=== PATIENT | female | born 1965 | race Caucasian/White ===

== ENCOUNTER 2018-08-08 07:11 | Inpatient (IN) | payer BC ==
--- NOTE | 2018-08-01 14:44 | HP ---
HISTORY AND PHYSICAL: DATE OF ADMISSION/SURGERY: 08/13/18 DATE OF OFFICE VISIT: 07/31/18 SURGEON: Lizet Mistry MD.* (DICTATED BY LUCI AGUIRRE) PROCEDURE: Right total hip arthroplasty. CHIEF COMPLAINT: Right hip pain. HISTORY OF PRESENT ILLNESS: Ms. Wiggins is a 52-year-old female with complaints of right hip pain. She has failed conservative treatment and elected to proceed with a right total hip arthroplasty. PAST MEDICAL HISTORY: 1. Vitamin D deficiency. 2. History of breast cancer. 3. Sleep apnea. 4. Hypothyroidism. 5. History of MRSA. PAST SURGICAL HISTORY: 1. Lumpectomy. 2. Bilateral carpal tunnel release. 3. Tubal ligation. 4. Cholecystectomy. 5. x2. 6. Tonsillectomy. CURRENT MEDICATIONS: 1. Synthroid 175 mcg daily. 2. Vitamin B12. 3. Multivitamin. 4. Vitamin C. 5. Magnesium. ALLERGIES: No known drug allergies. FAMILY HISTORY: Coronary artery disease. SOCIAL HISTORY: She is a 52-year-old female. Lives with her . She does not smoke or use drugs. She uses occasional alcohol. REVIEW OF SYSTEMS: A complete 14-point review of systems was reviewed with the patient. It was positive for hypothyroidism and a history of MRSA approximately 6 years ago. She denies history of DVT, PE, hepatitis, HIV, or anesthesia problems. PHYSICAL EXAMINATION GENERAL: She is well developed, well nourished, in no acute distress. VITAL SIGNS: She stands 5 feet 5 inches tall, weighs 254 pounds. Her blood pressure is 136/86 and heart rate is 92. HEENT: Normocephalic, atraumatic. NECK: Supple. No palpable lymph nodes. PULMONARY: The lungs are clear to auscultation bilaterally. CARDIO: Regular rate and rhythm. Strong S1, S2. ABDOMEN: Soft, nontender, nondistended. NEUROLOGICAL: She is alert and oriented x3. MUSCULOSKELETAL: Right lower extremity, the skin is intact. There are no open wounds or abrasions. She walks with an antalgic type gait favoring her right hip. She has decreased internal and external rotation of the right hip. She has a 2+ dorsalis pedis pulse, intact sensation. Her lower extremity muscle group strengths are intact at 5/5. ASSESSMENT AND PLAN: Ms. Wiggins is a 52-year-old female with end-stage osteoarthritis of the right hip. She has failed conservative treatment and elected to proceed with a right total hip arthroplasty. The surgery is scheduled for 08/13/[address] Mistry discussed the risks and the benefits of the surgery at today's visit and all of her questions were answered. She will follow up with Dr. Mistry in 2 weeks after the surgery. LUCI AGUIRRE [id number]/[facility] #: [id number] [facility]ENTERFranklyn
[~2018-08-08 07:11] MED LIST: Acetaminophen TAB* 325 MG PO ONE; Buffered Lidocaine 1% SYRIN* 1 ML/SYRINGE INTRADERM ONE; Famotidine IV* 10 MG/ML 2 ML (20 mg) IV ONE; Gabapentin CAP(*) 300 MG PO ONE; Lactated Ringers 1000 ML Bag* 1,000 ML IV SCH; celeCOXIB CAP* 200 MG PO ONE
--- OUTSIDE RECORDS SUMMARY | 2018-08-08 07:16 | XMS REPORT | Continuity of Care Document ---
:1965 External Reference #:[id number] Author Name Paty Molina Care Team Providers Name Role Phone Angeles Eason MD Primary Care Physician Unavailable Payers Type Date Identification Numbers Payment Provider Subscriber Policy Number: [id number] [facility] Ppo Linda Wiggins Group Number: [id number] [address] PayID: [id number] [place] [address] [address] Expires: 2009 Policy Number: [id number] Of Y Linda Wiggins PayID: [id number] [address] [place] [address] Advance Directives Description No Information Available Problems Date Description Provider Status Onset: 03/30/2016 Morbid obesity Abbey Pascal MD Active Onset: 05/01/2016 Obstructive sleep apnea syndrome Abbey Pascal MD Active Onset: 11/27/2017 Osteoarthritis of hip Angeles Eason M.D. Active Onset: 03/08/2018 Body mass index 40+ - severely obese Lizet Mistry M.D. Active Family History Date Family Member(s) Problem(s) Comments General Heart Disease Father age 77 Parkinson's and CHF Father due to CHF () Mother Arthritis Siblings 2 Brother and sister, healthy First Brother Alive And Well First Sister Alive And Well Social History Type Date Description Comments Sex Unknown Marital Status Lives With Family Occupation Currently Working Works for [employer], works in [employer] on [employer] ETOH Use Rarely consumes alcohol Tobacco Use Start: Unknown Patient is a former 1PPD x 8 years, quit End: Unknown smoker in 1988 Recreational Drug Use Denies Drug Use Smoking Status Reviewed: 07/30/18 Patient is a former 1PPD x 8 years, quit smoker in 1988 Exercise Type/Frequency Does not exercise Allergies, Adverse Reactions, Alerts Description No Known Drug Allergies Medications Medication Date Status Form Strength Qnty SIG Indications Ordering Provider Meloxicam 06/26/ Active Tablets 15mg 14tabs take 1 Lizet 2018 tab by meri Mistry M.D. with food once a day Synthroid 06/01/ Active Tablets 175mcg 90tabs one Octavio 2018 tablet NICKOLAS Barnard daily Vitamin B-12 / Active Tablets 1000mcg 1 by Unknown 0000 mouth every day Multivitamins / Active Capsules daily Unknown 0000 Vitamin D / Active Tablets 2000Unit 1 by Unknown 0000 mouth every day C 1000 / Active Tablets 1000mg Unknown 0000 Magnesium / Active daily Unknown 0000 Levofloxacin 03/08/ Hx Tablets 500mg 7tabs one by J01.90 Octavio 2018 - mouth NICKOLAS Barnard 03/08/ daily 2018 for 7 days Augmentin 03/01/ Hx Tablets 875-125mg 20tabs by mouth Junior 2018 - twice a D. Jessie, 03/11/ day Roge,FACP 2018 Fluticasone 02/26/ Hx Suspension 50mcg/Act 16unit 2 sprays J06.9 Otcavio Propionate 2018 - s each NICKOLAS Barnard 07/14/ nostril 2019 qd. Guaifenesin-Cod 02/26/ Hx Syrup 100-10mg/5 240ml 5-10ml J06.9 Octavio eine 2018 - ML every NICKOLAS Barnard 03/01/ 4-6 2018 hours for cough Tramadol HCL 01/21/ Hx Tablets 50mg 45tabs 1 tab Lizet 2017 - twice a Fede, 04/11/ day as M.D. 2018 needed for pain Sulfamethoxazol 12/24/ Hx Tablets 800-160mg 14tabs one by M79.671 Nicolasa e/Trimethoprim 2018 - mouth Varn, N.P. DS 12/31/ twice a 2018 day for 7 days Cephalexin 12/20/ Hx Tablets 500mg 21tabs take one R21 Octavio 2018 - tablet NICKOLAS Barnard 12/24/ every 8 2018 hours for 7 days Meloxicam 12/05/ Hx Tablets 15mg 14tabs take 1 Lizet 2017 - tab by Fede 04/11/ mouth M.D. 2018 with food once a day Diazepam 11/12/ Hx Tablets 5mg 2tabs 1-2 tabs Angeles 2017 - by mouth Cotton, hour M.D. 2018 prior to procedur e. Do not drive after taking Guaifenesin ac 06/27/ Hx Syrup 100-10mg/5 473ml 5-10ml Mateo01Rosalee Cunningham 2017 - ML every 6 NICKOLAS Barnard 07/02/ hours as 2018 needed-c ough Amoxicillin/Cla 06/26/ Hx Tablets 875-125mg 20tabs take one J01.90 Octavio vulanate 2017 - tablet NICKOLAS Barnard Potassium 07/07/ q12 2018 hours for 10 days Benzonatate 06/26/ Hx Capsules 200mg 30caps one by Destiny Cunningham 2017 - mouth NICKOLAS Barnard 06/27/ three 2016 times daily as needed for cough Synthroid 05/03/ Hx Tablets 150mcg 90tabs 1 By Octavio 2017 - Mouth NICKOLAS Barnard 06/01/ 2017 Day Sulfamethoxazol 02/06/ Hx Tablets 800-160mg 14tabs 1 tablet Angeles e/Trimethoprim 2016 - twice Cotton, DS 02/22/ daily M.D. 2016 for 7 days Cephalexin 02/05/ Hx Tablets 500mg 21tabs 1 by Nakul03.211 Angeles 2017 - mouth Cotton, 02/22/ three M.D. 2017 times a day x 7 days Vitamin D 03/29/ Hx Capsules [id number] 1 cap by Unknown (Ergocalciferol 2016 - mouth ) 12/17/ per week 2016 Fish Oil / Hx Capsules 1000mg 1 by Unknown Burp-Less 0000 mouth every day Glucosamine / Hx Capsules 500Comp 1 by Unknown Chondroitin 500 0000 - mouth Complex 10/30/ every 2017 day Metformin HCL / Hx Tablets 500mg 1 by Unknown 0000 - mouth 12/17/ daily 2016 Fish Oil / Hx Capsules 1000mg 1 by Unknown Concentrate 0000 - mouth 07/14/ once a 2019 day Medications Administered in Office Medication Date Status Form Strength Qnty SIG Indications Ordering Provider Depomedrol Administered Injection Lizet 40MG 018 Roge Mistry Immunizations Description No Information Available Vital Signs Date Vital Result Comment 07/30/2018 11:09am Height 65 inches 5'5" Weight 252.00 lb Heart Rate 82 /min BP Systolic Sitting 131 mmHg BP Diastolic Sitting 83 mmHg Body Temperature 96.9 F Pain Level 10 R hip O2 % BldC Oximetry 98 % BMI (Body Mass Index) 41.9 kg/m2 07/15/2018 8:20am Height 65 inches 5'5" Weight 257.00 lb Heart Rate 64 /min BP Systolic 132 mmHg BP Diastolic 86 mmHg Body Temperature 97.8 F Pain Level 4 BMI (Body Mass Index) 42.8 kg/m2 04/12/2018 3:28pm Height 65 inches 5'5" Weight 247.00 lb BP Systolic 123 mmHg BP Diastolic 78 mmHg Respiratory Rate 17 /min Pain Level 2 BMI (Body Mass Index) 41.1 kg/m2 03/29/2018 4:06pm Heart Rate 96 /min BP Systolic 118 mmHg BP Diastolic 86 mmHg Respiratory Rate 16 /min Pain Level 4 03/08/2018 10:12am Height 65 inches 5'5" Weight 267.50 lb Heart Rate 104 /min BP Systolic Sitting 132 mmHg BP Diastolic Sitting 82 mmHg Body Temperature 99.0 F O2 % BldC Oximetry 96 % BMI (Body Mass Index) 44.5 kg/m2 03/08/2018 8:54am Height 65 inches 5'5" Weight 262.00 lb BP Systolic 132 mmHg BP Diastolic 81 mmHg Respiratory Rate 16 /min Pain Level 6 BMI (Body Mass Index) 43.6 kg/m2 02/26/2018 11:15am Height 65 inches 5'5" Weight 267.00 lb Heart Rate 105 /min BP Systolic 135 mmHg BP Diastolic 83 mmHg Body Temperature 98.4 F O2 % BldC Oximetry 95 % BMI (Body Mass Index) 44.4 kg/m2 12/28/2017 2:28pm Height 65 inches 5'5" Weight 278.00 lb Heart Rate 68 /min BP Systolic Sitting 130 mmHg BP Diastolic Sitting 82 mmHg Body Temperature 97.0 F O2 % BldC Oximetry 97 % BMI (Body Mass Index) 46.3 kg/m2 12/24/2017 11:43am Height 65 inches 5'5" Weight 276.25 lb Heart Rate 68 /min BP Systolic Sitting 100 mmHg BP Diastolic Sitting 80 mmHg Respiratory Rate 16 /min Body Temperature 96.3 F BMI (Body Mass Index) 46.0 kg/m2 12/20/2017 11:42am Height 65 inches 5'5" Weight 268.00 lb Heart Rate 97 /min BP Systolic 120 mmHg BP Diastolic 74 mmHg Body Temperature 98.1 F O2 % BldC Oximetry 98 % BMI (Body Mass Index) 44.6 kg/m2 12/19/2017 8:53am Height 65 inches 5'5" Weight 275.00 lb BP Systolic Sitting 118 mmHg BP Diastolic Sitting 68 mmHg Respiratory Rate 16 /min Body Temperature 99.8 F Pain Level 5 BMI (Body Mass Index) 45.8 kg/m2 12/11/2017 2:16pm Heart Rate 76 /min Respiratory Rate 16 /min Body Temperature 97.6 F 12/05/2017 8:02am Height 65 inches 5'5" Weight 275.00 lb Heart Rate 80 /min BP Systolic 128 mmHg BP Diastolic 80 mmHg BMI (Body Mass Index) 45.8 kg/m2 11/27/2017 8:59am Height 64 inches 5'4" Weight 273.00 lb Heart Rate 75 /min BP Systolic Sitting 140 mmHg BP Diastolic Sitting 90 mmHg Body Temperature 97.4 F Pain Level 7 Right side O2 % BldC Oximetry 97 % BMI (Body Mass Index) 46.9 kg/m2 10/30/2017 9:45am Weight 269.50 lb Heart Rate 78 /min BP Systolic 128 mmHg BP Diastolic 81 mmHg Body Temperature 96.7 F O2 % BldC Oximetry 95 % 06/26/2017 9:37am Height 64 inches 5'4" Weight 253.00 lb Heart Rate 88 /min BP Systolic Sitting 134 mmHg BP Diastolic Sitting 88 mmHg Body Temperature 97.9 F O2 % BldC Oximetry 98 % BMI (Body Mass Index) 43.4 kg/m2 02/22/2017 9:46am Height 64 inches 5'4" Weight 244.00 lb Heart Rate 67 /min BP Systolic Sitting 120 mmHg BP Diastolic Sitting 80 mmHg O2 % BldC Oximetry 97 % BMI (Body Mass Index) 41.9 kg/m2 02/05/2017 10:09am Weight 244.25 lb Heart Rate 89 /min BP Systolic 124 mmHg BP Diastolic 70 mmHg Body Temperature 97.4 F 12/18/2016 11:11am Height 64 inches 5'4" Weight 248.00 lb Heart Rate 70 /min BP Systolic Sitting 116 mmHg BP Diastolic Sitting 78 mmHg Respiratory Rate 16 /min O2 % BldC Oximetry 98 % room air BMI (Body Mass Index) 42.6 kg/m2 07/26/2016 3:35pm Height 64 inches 5'4" Weight 276.00 lb Heart Rate 76 /min BP Systolic 130 mmHg BP Diastolic 82 mmHg Respiratory Rate 18 /min Body Temperature 97.4 F BMI (Body Mass Index) 47.4 kg/m2 06/21/2016 10:42am Height 64 inches 5'4" Weight 290.00 lb Heart Rate 84 /min BP Systolic 124 mmHg BP Diastolic 72 mmHg Respiratory Rate 18 /min Body Temperature 97.2 F BMI (Body Mass Index) 49.8 kg/m2 06/13/2016 10:56am Height 64 inches 5'4" Weight 288.00 lb Heart Rate 72 /min BP Systolic 124 mmHg BP Diastolic 82 mmHg Respiratory Rate 14 /min O2 % BldC Oximetry 97 % BMI (Body Mass Index) 49.4 kg/m2 05/24/2016 3:59pm Height 64 inches 5'4" Weight 288.00 lb Heart Rate 84 /min BP Systolic 112 mmHg BP Diastolic 78 mmHg Respiratory Rate 16 /min Body Temperature 97.7 F BMI (Body Mass Index) 49.4 kg/m2 05/01/2016 3:55pm Height 64 inches 5'4" Weight 288.00 lb Heart Rate 72 /min BP Systolic 124 mmHg BP Diastolic 82 mmHg Respiratory Rate 14 /min O2 % BldC Oximetry 98 % BMI (Body Mass Index) 49.4 kg/m2 04/21/2016 11:12am Height 64 inches 5'4" Weight 288.00 lb Heart Rate 72 /min BP Systolic 118 mmHg BP Diastolic 88 mmHg Respiratory Rate 16 /min Body Temperature 96.9 F BMI (Body Mass Index) 49.4 kg/m2 04/03/2016 3:02pm Height 64 inches 5'4" Weight 287.00 lb Heart Rate 80 /min BP Systolic 146 mmHg BP Diastolic 92 mmHg BMI (Body Mass Index) 49.3 kg/m2 03/30/2016 7:49am Height 64 inches 5'4" Weight 289.50 lb Heart Rate 76 /min BP Systolic Sitting 132 mmHg BP Diastolic Sitting 76 mmHg Respiratory Rate 16 /min O2 % BldC Oximetry 98 % BMI (Body Mass Index) 49.7 kg/m2 Neck Circumference in inches 17.5 Results Test Date Facility Test Result H/L Range Note Laboratory test 07/29/2018 [facility] TSH 0.54 mcIU/mL N 0.34- 5.60 finding 101 ([place] [address] Stim Horm) [phone] Free T4 (Free Thyroxine) 1.55 ng/dL High 0.61-1.12 Comp Metabolic Panel 05/28/2018 [facility] Sodium 143 mmol/L N 135-[address] [place] [address] [phone] Potassium 4.2 mmol/L N 3.5-5.0 Chloride 106 mmol/L N 101-111 Co2 Carbon Dioxide 29 mmol/L N 22-32 Anion Gap 8 mmol/L N 2-11 Glucose 86 mg/dL N 70-100 Blood Urea Nitrogen 19 mg/dL N 6-24 Creatinine 0.86 mg/dL N 0.51-0.95 BUN/Creatinine Ratio 22.1 High 8-20 Calcium 9.1 mg/dL N 8.6-10.3 Total Protein 7.0 g/dL N 6.4-8.9 Albumin 4.0 g/dL N 3.2-5.2 Globulin 3.0 g/dL N 2-4 Albumin/Globulin Ratio 1.3 N 1-3 Total Bilirubin 0.40 mg/dL N 0.2-1.0 Alkaline Phosphatase 59 U/L N 34-104 Alt 24 U/L N 7-52 Ast 18 U/L N 13-39 Egfr Non- 69.0 >60 Egfr 83.5 >60 1 Laboratory 05/28/2018 [facility] TSH (Thyroid 7.90 High 0.34- 5.[address] [facility]orm) mcIU/[place] [address] [phone] Lipid Profile 05/28/2018 [facility] Triglycerides 126 mg/dL 3 (Trig/Chol/HDL [address] ) [place], [place] [id number] [phone] Cholesterol 195 mg/dL 4 HDL Cholesterol 56.8 mg/dL 5 LDL Cholesterol 113 mg/dL 6 Laboratory 05/07/2017 [facility] Hepatitis C Nonreactive N Nonreactive [address] Antibody [place], [place] [id number] [phone] Lipid Profile 05/07/2017 [facility] Triglycerides 58 mg/dL N 8 (Trig/Chol/HD [address]) [place] [address] [phone] Cholesterol 145 mg/dL N 9 HDL Cholesterol 54.3 mg/dL N 10 LDL Cholesterol 79 mg/dL N 11 Comp Metabolic Panel 05/07/2017 [facility] Sodium 136 mmol/L N 133-[address] [place] [address] [phone] Potassium 4.5 mmol/L N 3.5-5.0 Chloride 101 mmol/L N 101-111 Co2 Carbon Dioxide 30 mmol/L N 22-32 Anion Gap 5 mmol/L N 2-11 Glucose 83 mg/dL N 70-100 Blood Urea Nitrogen 14 mg/dL N 6-24 Creatinine 0.71 mg/dL N 0.51-0.95 BUN/Creatinine Ratio 19.7 N 8-20 Calcium 9.6 mg/dL N 8.6-10.3 Total Protein 7.7 g/dL N 6.4-8.9 Albumin 4.1 g/dL N 3.2-5.2 Globulin 3.6 g/dL N 2-4 Albumin/Globulin Ratio 1.1 N 1-3 Total Bilirubin 0.60 mg/dL N 0.2-1.0 Alkaline Phosphatase 47 U/L N 34-104 Alt 18 U/L N 7-52 Ast 16 U/L N 13-39 Egfr Non- 86.4 N >60 Egfr 111.2 N >60 12 Laboratory test 05/07/2017 [facility] TSH (Thyroid 2.60 mcIU/mL N 0.34-5.[address] Stim [place]orm) [place] [address] [phone] 1 Because ethnic data is not always readily available, this report includes an eGFR for both -Americans and non- Americans. The National Kidney Disease Education Program (NKDEP) does not endorse the use of the MDRD equation for patients that are not between the ages of 18 and 70, are , have extremes of body size, muscle mass, or nutritional status, or are non- or non-. According to the National Kidney Foundation, irrespective of diagnosis, the stage of the disease is based on the level of kidney function: Stage Description GFR(mL/min/1.73 m(2)) 1 Kidney damage with normal or decreased GFR 90 2 Kidney damage with mild decrease in GFR 60-89 3 Moderate decrease in GFR 30-59 4 Severe decrease in GFR 15-29 5 Kidney failure <15 (or dialysis) 2 FASTING 10 HOUR May 04 Desirable: <150 Borderline High: 150-199 High: 200-499 Very High: >500 4 Desirable: <200 Borderline High: 200-239 High: >239 5 Low: <40 Desirable: 40-60 High: >60 6 Desirable: <100 Near Optimal: 100-129 Borderline High: 130-159 High: 160-189 Very High: >189 7 FASTING 10 HOUR 8 Desirable: <150 Borderline High: 150-199 High: 200-499 Very High: >500 9 Desirable: <200 Borderline High: 200-239 High: >239 10 Low: <40 Desirable: 40-60 High: >60 11 Desirable: <100 Near Optimal: 100-129 Borderline High: 130-159 High: 160-189 Very High: >189 12 Because ethnic data is not always readily available, this report includes an eGFR for both -Americans and non- Americans. The National Kidney Disease Education Program (NKDEP) does not endorse the use of the MDRD equation for patients that are not between the ages of 18 and 70, are , have extremes of body size, muscle mass, or nutritional status, or are non- or non-. According to the National Kidney Foundation, irrespective of diagnosis, the stage of the disease is based on the level of kidney function: Stage Description GFR(mL/min/1.73 m(2)) 1 Kidney damage with normal or decreased GFR 90 2 Kidney damage with mild decrease in GFR 60-89 3 Moderate decrease in GFR 30-59 4 Severe decrease in GFR 15-29 5 Kidney failure <15 (or dialysis) 13 FASTING 10 HOUR Procedures Date Code Description Status 03/29/2018 30764 Inj/Aspir Major JT Or Bursa W/ US Completed 10/05/2017 [id number] Mammogram Completed 04/09/2016 46393 Sleep Study Unattended,HRT Rate,Oxygen Sat,Resp Completed Effort/Airflow 12/28/2014 [id number] Colonoscopy Completed Encounters Type Date Location Provider Dx Diagnosis Office Visit 07/15/2018 Orthopedic Lizet Mistry, M25.551 Pain in right hip 8:00a [facility] [facility] M16.11 Unilateral primary osteoarthritis, right hip E66.01 Morbid (severe) obesity due to excess calories Z68.41 Body mass index (BMI) 40.0-44.9, adult Office Visit 04/12/2018 3:00p [facility] Lizet Mistry M25.551 Pain in right Of [facility] M.D. hip M16.11 Unilateral primary osteoarthritis, right hip E66.01 Morbid (severe) obesity due to excess calories Z68.41 Body mass index (BMI) 40.0-44.9, adult Office Visit 03/08/2018 8:45a [facility] Lizet Mistry M25.551 Pain in right Of [facility]. M.D. hip G47.33 Obstructive sleep apnea (adult) (pediatric) M16.11 Unilateral primary osteoarthritis, right hip Z68.41 Body mass index (BMI) 40.0-44.9, adult Office Visit 03/08/2018 10:20a [facility] Internal Octavio Barnard Z00.00 [facility] for Medicine - SERVICE PLANNER general adult [place] medical exam w/o abnormal findings E03.9 Hypothyroidism, unspecified Z13.220 Encounter for screening for lipoid disorders Z13.1 Encounter for screening for diabetes mellitus J01.90 Acute sinusitis, unspecified Office Visit 02/26/2018 10:40a [facility] Internal Octavio Barnard NP J06.9 Acute upper Medicine - respiratory [place] infection, unspecified Office Visit 12/28/2017 2:20p [facility] Internal Nicolasa Rankin, L03.115 Cellulitis of Medicine - N.P. right lower limb [place] B35.3 Tinea pedis Office Visit 12/24/2017 11:40a [facility] Internal Nicolasa Rankin M79.671 Pain in right Medicine - N.P. foot [place] Office Visit 12/20/2017 11:40a [facility] Internal Octavio Barnard NP R21 Rash and other Medicine - nonspecific skin [place] eruption Office Visit 12/19/2017 8:45a Orthopedic Lizet Mistry, M25.551 Pain in right hip Services Roge CastellanoMZara M16.11 Unilateral primary osteoarthritis, right hip Office Visit 12/11/2017 Surgical Jenn Rodriguez R92.0 Mammographic 2:00p [facility] microcalcification [facility] found on dx imaging [facility] Office Visit 12/05/2017 Orthopedic Lizet M16.11 Unilateral primary 8:00a [facility] Roge Mistry osteoarthritis, right C.M.A. hip E66.01 Morbid (severe) obesity due to excess calories Z68.42 Body mass index (BMI) 45.0-49.9, adult M25.551 Pain in right hip Office Visit 11/27/2017 9:00a [facility] Internal Angeles M54.32 Sciatica, left Citlali Eason M.D. side [place] Z85.3 Personal history of malignant neoplasm of breast R03.0 Elevated blood-pressure reading, w/o diagnosis of htn Office Visit 10/30/2017 9:40a [facility] Internal Angeles M54.32 Sciatica, left Citlali Eason M.D. side [place] Office Visit 06/26/2017 9:40a [facility] Internal Octavio Barnard NP J01.90 Acute sinusitis, Medicine - unspecified [place] Office Visit 02/22/2017 9:40a [facility] Internal Octavio Barnard NP Z00.00 [facility] for [facility] - general adult [place] medical exam w/o abnormal findings G47.33 Obstructive sleep apnea (adult) (pediatric) E03.9 Hypothyroidism, unspecified Z13.220 Encounter for screening for lipoid disorders Z13.1 Encounter for screening for diabetes mellitus Z11.59 Encounter for screening for other viral diseases Office Visit 02/05/2017 [facility] Internal Angeles L03.211 Cellulitis of 10:00a Citlali Eason M.D. face [place] Office Visit 12/18/2016 Pulmonology And Shabana G47.33 Obstructive sleep 11:00a [facility] Rogers, RN, apnea (adult) [facility] PACU NURSE-BC (pediatric) E66.01 Morbid (severe) obesity due to excess calories Z68.42 Body mass index (BMI) 45.0-49.9, adult Office Visit 07/26/2016 3:30p Surgical Ramiro Elizabeth E66.01 Morbid ( severe) [facility] HAIRSTON, ROSAS obesity due to excess calories Z71.3 Dietary counseling and surveillance Office Visit 06/21/2016 11:00a Surgical Jael Huerta E66.01 Morbid [facility] NICKOLAS Naidu (severe) obesity due to excess calories Z68.42 Body mass index (BMI) 45.0-49.9, adult Z71.3 Dietary counseling and surveillance G47.33 Obstructive sleep apnea (adult) (pediatric) M16.11 Unilateral primary osteoarthritis, right hip Office Visit 06/13/2016 10:45a [facility] And Abbey G47.33 Obstructive sleep [facility] apnea (adult) [facility] (pediatric) E66.01 Morbid (severe) obesity due to excess calories Z68.42 Body mass index (BMI) 45.0-49.9, adult Office Visit 05/24/2016 4:00p Surgical Ramiro Elizabeth E66.01 Morbid ( severe) [facility] ROSAS HAIRSTON obesity due to excess calories Z71.3 Dietary counseling and surveillance Office Visit 05/01/2016 3:45p Pulmonology And Abbey G47.33 Obstructive sleep [facility] apnea (adult) [facility] (pediatric) E66.01 Morbid (severe) obesity due to excess calories Office Visit 04/21/2016 Surgical Jael Huerta Z71.3 Dietary counseling 11:00a [facility] NICKOLAS Naidu and surveillance [facility] E66.01 Morbid (severe) obesity due to excess calories Z68.42 Body mass index (BMI) 45.0-49.9, adult Office Visit 04/03/2016 Orthopedic Ignacio Torres, M16.11 Unilateral primary 3:00p [facility] Roge jack, C.M.A. right hip Office Visit 03/30/2016 Pul[facility] And Abbey R06.83 Snoring 7:45a [facility] R40.0 Somnolence E66.01 Morbid (severe) obesity due to excess calories Plan of Treatment Future Appointment(s):08/13/2018 3:30 pm - Fran Hernandez PA-C at [facility]08/13/2018 3:30 pm - LUCI Gill at [facility]08/13/2018 3:30 pm - Lizet Mistry M.D. at [facility]07/31/2018 9:00 am - Lizet Mistry M.D. at [facility] [place]/14/2019 9:40 am - Octavio Barnard NP at [facility] Internal Medicine [facility]07/30/2018 - Octavio Barnard, NICKOLASZ01.818 Encounter for other preprocedural examinationNew Orders:EKG, Ordered: 07/30/18M25.551 Pain in right hipNew Xrays: Hip Right 2 Views And Pelvis 44002 - 13949, Ordered: 07/30/18E03.9 Hypothyroidism, semyluhhqvqP26.33 Obstructive sleep apnea (adult) (pediatric) Comments:I recommend resuming use of your CPAP leading up to surgery and after. Bring your CPAP with you to the hospital with you the day of surgery.
--- OUTSIDE RECORDS SUMMARY | 2018-08-08 07:16 | XMS REPORT | Continuity of Care Document ---
:1965 External Reference #:[id number] Author Name Jeanna Vernon Care Team Providers Name Role Phone Angeles Eason MD Primary Care Physician Unavailable Payers Type Date Identification Numbers Payment Provider Subscriber Policy Number: [id number] [facility] Linda Wiggins Group Number: [id number] [address] PayID: [id number] [place] [address] [address] Expires: 2009 Policy Number: [id number] Of Y Linda Wiggins PayID: [id number] [address] [place] [address] Advance Directives Description No Information Available Problems [...] With Family Occupation Currently Working Works for [email or web address], works in [employer] on [employer], [employer] ETOH Use Rarely consumes alcohol Tobacco Use Start: Unknown Patient is a former 1PPD x 8 years, quit End: Unknown smoker in 1988 Recreational Drug Use Denies Drug Use Smoking Status Reviewed: 07/31/18 Patient is a former 1PPD x 8 years, quit smoker in 1988 Exercise Type/Frequency Does not exercise Allergies, Adverse Reactions, Alerts Description No Known Drug Allergies Medications Medication Date Status Form Strength Qnty SIG Indications Ordering Provider Synthroid 06/01/ Active Tablets 175mcg 90tabs one Octavio 2018 tablet NICKOLAS Barnard daily Vitamin B-12 / Active Tablets 1000mcg 1 by Unknown 0000 mouth every day Multivitamins / Active Capsules daily Unknown 0000 Vitamin D / Active Tablets 2000Unit 1 by Unknown 0000 mouth every day C 1000 / Active Tablets 1000mg Unknown 0000 Magnesium / Active daily Unknown 0000 Meloxicam 06/26/ Hx Tablets 15mg 14tabs take 1 Lizet 2018 - tab by Fede, 07/30/ mouth M.D. 2018 with food once a day Levofloxacin 03/08/ Hx Tablets 500mg 7tabs one by J01.90 Octavio 2018 - mouth NICKOLAS Barnard 03/08/ daily 2018 for 7 days Augmentin 03/01/ Hx Tablets 875-125mg 20tabs by mouth Junior 2018 - twice a D. Jessie, 03/11/ day MBrandin,FACP 2018 Fluticasone 02/26/ Hx Suspension 50mcg/Act 16unit 2 sprays J06.9 Octavio Propionate 2018 - s each NICKOLAS Barnard [...] Hx Tablets 15mg 14tabs take 1 Lizet 2018 - tab by Fede, 04/11/ mouth M.D. 2017 with food once a day Diazepam 11/12/ Hx Tablets 5mg 2tabs 1-2 tabs Angeles 2018 - by mouth Cotton, 11/27/ 1 hour M.D. 2018 prior to procedur e. Do not drive after taking Guaifenesin ac 06/27/ Hx Syrup 100-10mg/5 473ml 5-10ml J01.90 Octavio 2017 - ML every 6 NICKOLAS Barnard 07/02/ hours as 2018 needed-c ough Amoxicillin/Cla 06/26/ Hx Tablets 875-125mg 20tabs take one J01.90 Octavio vulanate 2016 - tablet NICKOLAS Barnard Potassium 07/07/ q12 2018 hours for 10 days Benzonatate 06/26/ Hx Capsules 200mg 30caps one by [email or web address] Octavio 2017 - mouth NICKOLAS Barnard 06/27/ three 2016 times daily as needed for cough Synthroid 05/03/ Hx Tablets 150mcg 90tabs 1 By Octavio 2017 - Mouth NICKOLAS Barnard 06/01/ Every 2017 Day Sulfamethoxazol 02/06/ Hx Tablets 800-160mg 14tabs 1 tablet Angeles andrade/Trimethoprim 2016 - twice Cotton, DS 02/22/ daily M.D. 2016 for 7 days Cephalexin 02/05/ Hx Tablets 500mg 21tabs 1 by [email or web address] Angeles 2016 - mouth Cotton, 02/22/ three M.D. 2017 times a day x 7 days Vitamin D 03/29/ Hx Capsules [id number] 1 cap by Unknown (Ergocalciferol 2016 - [...] Available Vital Signs Date Vital Result Comment 07/31/2018 9:16am Height 65 inches 5'5" Weight 254.00 lb Heart Rate 92 /min BP Systolic 136 mmHg BP Diastolic 86 mmHg BMI (Body Mass Index) 42.3 kg/m2 07/30/2018 11:09am Height 65 inches 5'5" Weight [...] Date Facility Test Result H/L Range Note CBC Auto Diff 07/30/2018 [facility] White Blood 5.6 10^3/uL N 3.5-10.[address] [place] [address] [phone] Red Blood Count 4.91 10^6/uL N 4.00-5.40 Hemoglobin 14.2 g/dL N 12.0-16.0 Hematocrit 42 % N 35-47 Mean Corpuscular Volume 86 fL N 80-97 Mean Corpuscular Hemoglobin 29 pg N 27-31 Mean Corpuscular HGB Conc 33 g/dL N 31-36 Red Cell Distribution Width 14 % N 10.5-15 Platelet Count 288 10^3/uL N 150-450 Mean Platelet Volume 8.1 fL N 7.4-10.4 Abs Neutrophils 2.9 10^3/uL N 1.5-7.7 Abs Lymphocytes 2.0 10^3/uL N 1.0-4.8 Abs Monocytes 0.5 10^3/uL N 0-0.8 Abs Eosinophils 0.1 10^3/uL N 0-0.6 Abs Basophils 0 10^3/uL N 0-0.2 Abs Nucleated RBC 0 10^3/uL Granulocyte % 51.8 % Lymphocyte % 36.5 % Monocyte % 8.9 % Eosinophil % 2.1 % Basophil % 0.7 % Nucleated Red Blood Cells % 0.1 Basic Metabolic Panel 07/30/2018 [facility] Sodium 138 mmol/L N 135-[address] [place] [address] [phone] Potassium 4.4 mmol/L N 3.5-5.0 Chloride 101 mmol/L N 101-111 Co2 Carbon Dioxide 28 mmol/L N 22-32 Anion Gap 9 mmol/L N 2-11 Glucose 91 mg/dL N 70-100 Blood Urea Nitrogen 15 mg/dL N 6-24 Creatinine 0.70 mg/dL N 0.51-0.95 BUN/Creatinine Ratio 21.4 High 8-20 Calcium 9.5 mg/dL N 8.6-10.3 Egfr Non- 87.5 >60 Egfr 105.9 >60 1 Laboratory test 07/30/2018 [facility] Partial 30.8 seconds N 26.0-36.[address] [place] [address] PTT [phone] Inr/Protime 07/30/2018 [facility] Inr 0.95 N 0.77-1.[address] [place] [address] [phone] Type & Screen 07/30/2018 [facility] Patient [place] [address] [phone] Antibody Screen NEGATIVE Laboratory test 07/29/2018 [facility] TSH (Thyroid 0.54 mcIU/mL N 0.34-5.[address] Stim Horm) [place] [address] [phone] Free T4 (Free Thyroxine) 1.55 ng/dL High 0.61-1.12 Comp Metabolic Panel 05/28/2018 [facility] Sodium 143 mmol/L N 135-145 [place] [address] [phone] Potassium 4.2 mmol/L N 3.5-5.0 Chloride 106 [...] Egfr Non- 69.0 >60 Egfr 83.5 >60 2 Laboratory 05/28/2018 [facility] TSH (Thyroid 7.90 High 0.34- 5.[address] Stim Horm) mcIU/[place] [address] [phone] Lipid Profile 05/28/2018 [facility] Triglycerides 126 mg/dL 4 (Trig/Chol/HDL [address] ) [place] [address] [phone] Cholesterol 195 mg/dL 5 HDL Cholesterol 56.8 mg/dL 6 LDL Cholesterol 113 mg/dL 7 Laboratory 05/07/2017 [facility] Hepatitis C Nonreactive N Nonreactive 8 test finding [address] [place] [address] [phone] Lipid Profile 05/07/2017 [facility] Triglycerides 58 mg/dL N 9 (Trig/Chol/HD [address] L) [place] [address] [phone] Cholesterol 145 mg/dL N 10 HDL Cholesterol 54.3 mg/dL N 11 LDL Cholesterol 79 mg/dL N 12 Comp Metabolic Panel 05/07/2017 [facility] Sodium 136 mmol/L N 133-[address] [place] [address] [phone] Potassium 4.5 mmol/L N 3.5-5.0 Chloride 101 [...] 86.4 N >60 Egfr 111.2 N >60 13 Laboratory test 05/07/2017 [facility] TSH (Thyroid 2.60 mcIU/mL N 0.34-5.60 [address] Stim Horm) [place] [address] [phone] 1 Because ethnic data is not always [...] 5 Kidney failure <15 (or dialysis) 2 Because ethnic data is not always readily [...] 15-29 5 Kidney failure <15 (or dialysis) 3 FASTING 10 HOUR May 05 Desirable: <150 Borderline High: 150-199 High: 200-499 Very High: >500 5 Desirable: <200 Borderline High: 200-239 High: >239 6 Low: <40 Desirable: 40-60 High: >60 7 Desirable: <100 Near Optimal: 100-129 Borderline High: 130-159 High: 160-189 Very High: >189 8 FASTING 10 HOUR 9 Desirable: <150 Borderline High: 150-199 High: 200-499 Very High: >500 10 Desirable: <200 Borderline High: 200-239 High: >239 11 Low: <40 Desirable: 40-60 High: >60 12 Desirable: <100 Near Optimal: 100-129 Borderline High: 130-159 High: 160-189 Very High: >189 13 Because ethnic data is not always readily [...] 15-29 5 Kidney failure <15 (or dialysis) 14 FASTING 10 HOUR Procedures Date Code Description Status 07/30/2018 01181 EKG Tracing & Interpretation Completed 03/29/201831715 Inj/Aspir Major JT Or Bursa W/ US Completed 10/05/2017 [id number] Mammogram Completed 04/09/2016 60347 Sleep Study Unattended,HRT Rate,Oxygen Sat,Resp Completed Effort/Airflow 12/28/2014 13359804 Colonoscopy Completed Encounters Type Date Location Provider Dx Diagnosis Office Visit 07/15/2018 Orthopedic Lizet Mistry, M25.551 Pain in right hip 8:00a [facility] MEduinD. M16.11 Unilateral primary osteoarthritis, right hip E66.01 [...] (BMI) 40.0-44.9, adult Office Visit 03/08/2018 10:20a 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 Internal Octavio Barnard NP J06.9 Acute upper Medicine - respiratory [place] infection, unspecified Office Visit 12/28/2017 2:20p [facility] Internal Nicolasa Rankin, L03.115 Cellulitis of Medicine - N.P. right lower limb [place] B35.3 Tinea pedis Office Visit 12/24/2017 11:40a [facility] Internal Nicolasa Rankin M79.671 Pain in right Medicine - N.P. foot [place] Office Visit 12/20/2017 11:40a 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 hip E66.01 Morbid (severe) obesity due to excess calories Z68.42 Body mass index (BMI) 45.0-49.9, adult M25.551 Pain in right hip Office Visit 11/27/2017 9:00a [facility] Internal Angeles M54.32 Sciatica, left Citlali Eason M.D. side [place] Z85.3 Personal history of malignant neoplasm of breast R03.0 Elevated blood-pressure reading, w/o diagnosis of htn Office Visit 10/30/2017 9:40a [facility] Internal Angeles M54.32 Sciatica, left Citlali Eason M.D. side [place] Office Visit 06/26/2017 9:40a [facility] Internal Octavio Barnard NP J01.90 Acute sinusitis, Medicine - unspecified [place] Office Visit 02/22/2017 9:40a [facility] Internal Octavio Barnard NP Z00.00 Encntr for Medicine - general adult [place] medical exam w/o abnormal findings G47.33 Obstructive sleep apnea (adult) (pediatric) E03.9 Hypothyroidism, unspecified Z13.220 Encounter for screening for lipoid disorders Z13.1 Encounter for screening for diabetes mellitus Z11.59 Encounter for screening for other viral diseases Office Visit 02/05/2017 [facility] Internal Angeles L03.211 Cellulitis of 10:00a Citlali Eason M.D. face [place] Office Visit 12/18/2016 Pulmonology And Shabana G47.33 Obstructive sleep 11:00a [facility] KARIME Rogers, RN, apnea (adult) 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 ROSAS HAIRSTON obesity due to excess calories Z71.3 Dietary counseling and surveillance Office Visit 06/21/2016 11:00a Surgical Jael Huerta E66.[address] [facility] NICKOLAS Naidu (severe) obesity due to excess calories Z68.42 Body mass index (BMI) 45.0-49.9, adult Z71.3 Dietary counseling and surveillance G47.33 Obstructive sleep apnea (adult) (pediatric) M16.11 Unilateral primary osteoarthritis, right hip Office Visit 06/13/2016 10:45a Pulmonology And [place] G47.33 Obstructive sleep [facility] apnea (adult) [facility] (pediatric) E66.01 Morbid (severe) obesity due to excess calories Z68.42 Body mass index (BMI) 45.0-49.9, adult Office Visit 05/24/2016 4:00p Surgical Ramiro Elizabeth, E66.01 Morbid ( severe) [facility] ROSAS HAIRSTON obesity due to excess calories Z71.3 Dietary counseling and surveillance Office Visit 05/01/2016 3:45p Pulmonology [facility] [place] G47.33 Obstructive sleep [facility] apnea (adult) [facility] (pediatric) E66.01 Morbid (severe) obesity due to excess calories Office Visit 04/21/2016 Surgical Jael Huerta Z71.3 Dietary counseling 11:00a [facility] NICKOLAS Naidu and surveillance [facility] E66.01 Morbid (severe) obesity due to excess calories Z68.42 Body mass index (BMI) 45.0-49.9, adult Office Visit 04/03/2016 Orthopedic Ignacio Torres, M16.11 Unilateral primary 3:00p [facility] osteoarthritis, C.[facility]. right hip Office Visit 03/30/2016 Pulmon[facility] [place] R06.83 Snoring 7:45a [facility] R40.0 Somnolence E66.01 Morbid (severe) obesity due to excess calories Plan of Treatment Future Appointment(s):08/21/2018 10:30 am - Lizet Mistry M.D. at [facility]08/08/2018 3:30 pm - MAGNO Castillo at [facility]08/08/2018 3:30 pm - LUCI Gill at [facility]08/08/2018 3:30 pm - Lizet Mistry M.D. at [facility]03/14/2019 9:40 am - Octavio Barnard NP at [facility] Internal Medicine - Ekzspgsir67/30/2019 - Lizet Mistry M.D.M25.551 Pain in right hipFollow up: Follow up: 2 weeks after surgery
[2018-08-08] MEDS ORDERED: ceFAZolin 2 GM PREMIX in ORs 2 GM/50 ML BAG IVPB ONE (07:58)
[2018-08-08] MEDS ORDERED: celeCOXIB CAP* 100 MG ONE (07:58)
[2018-08-08] MEDS ORDERED: Famotidine IV* 10 MG/ML 2 ML (20 mg) ONE (07:58)
[2018-08-08] MEDS ORDERED: Gabapentin CAP(*) 300 MG ONE (07:58)
[2018-08-08] MEDS ORDERED: Acetaminophen TAB* 325 MG ONE (07:58)
[2018-08-08] MEDS ORDERED: Lidocaine 2% PF * 5 ML VIAL ONE (08:27)
[2018-08-08] MEDS ORDERED: Ketorolac INJ* 30 MG/ML 1 ML VIAL ONE (08:27)
[2018-08-08] MEDS ORDERED: fentaNYL* 50 MCG/ML 2 ML VIAL (100 MCG VIAL) ONE ×2 (08:27→14:31)
[2018-08-08] MEDS ORDERED: Propofol* 10 MG/ML 20 ML BTL ONE ×2 (08:27→11:09)
[2018-08-08] MEDS ORDERED: Ondansetron INJ* 2 MG/ML VIAL ONE (08:27)
[2018-08-08] MEDS ORDERED: Dexamethasone IV* 4 MG/ML 1 ML (4 MG) ONE (08:27)
[2018-08-08] MEDS ORDERED: Midazolam* 1 MG/ML 5 ML VIAL (5 MG) ONE (08:28)
[2018-08-08] MEDS ORDERED: Cisatracurium* 2 MG/ML MDV 5 ML ONE (10:42)
[2018-08-08] MEDS ORDERED: fentaNYL* 50 MCG/ML 5 ML VIAL (250 MCG VIAL) ONE (11:09)
[2018-08-08] MEDS ORDERED: ROPIVACAINE 5 MG/ML 30 ML BTL (0.5%) ONE (13:00)
[2018-08-08] MEDS ORDERED: HYDROmorphone INJ1* 1 MG/ML SYRINGE ONE ×2 (13:25→13:58)
[2018-08-08] MEDS ORDERED: Morphine VIAL* 4 MG/ML VIAL (1 ml vial) IV PRN (13:45)
[2018-08-08] MEDS ORDERED: Cyclobenzaprine TAB* 10 MG PO PRN (13:45)
[2018-08-08] MEDS ORDERED: Ondansetron INJ* 2 MG/ML VIAL IV PRN ×2 (13:45→13:56)
[2018-08-08] MEDS ORDERED: Polyethylene Glycol 3350* 17 GM PACKET PO PRN (13:45)
[2018-08-08] MEDS ORDERED: Ondansetron TAB* 4 MG PO PRN (13:45)
[2018-08-08] MEDS ORDERED: Magnesium Hydroxide LIQ* 30 ML UDC PO PRN (13:45)
[2018-08-08] MEDS ORDERED: oxyCODONE/Acetamin 5/325 MG* TAB PO PRN (13:45)
[2018-08-08] MEDS ORDERED: diPHENhydraMINE IV* 50 MG/ML 1 ml VIAL (BENADRYL) IV PRN (13:45)
[2018-08-08] MEDS ORDERED: Bisacodyl SUPP* 10 MG SUPP PR PRN (13:45)
[2018-08-08] MEDS ORDERED: traMADol TAB* 50 MG PO PRN (13:45)
[2018-08-08] MEDS ORDERED: Naloxone* 0.4 MG/ML 1 ML VIAL IV PRN (13:56)
[2018-08-08] MEDS: HYDROmorphone INJ1* 1 MG/ML SYRINGE IV PRN ×2 (14:03→14:21)
--- NOTE | 2018-08-08 14:41 | PN ---
Progress Note - Progress Note Date of Service: 08/08/18 Note: patient resting comfortably in recovery room. Pain well controlled. able to dorsi flex/plantar flex, 2+ DP pulse and intact sensation
[2018-08-08] MEDS: fentaNYL* 50 MCG/ML 2 ML VIAL (100 MCG VIAL) IV PRN ×2 (14:56→15:41)
[2018-08-08] MEDS ORDERED: oxyCODONE TAB* 5 MG TAB ONE ×2 (15:33→15:37)
[2018-08-08] MEDS: oxyCODONE TAB* 5 MG TAB PO PRN ×2 (15:36→19:24)
[2018-08-08] MEDS ORDERED: ceFAZolin 1 GM ADVAN(*) 1 GM in NS 0.9% 50 ML* 50 ML IVPB SCH (16:30)
[2018-08-08] MEDS: Lactated Ringers 1000 ML Bag* 1,000 ML IV SCH (16:58)
[2018-08-08] MEDS ORDERED: Warfarin TAB(*) 6 MG PO ONE (18:00)
[2018-08-08] MEDS ORDERED: Morphine INJ* 2 MG/ML 1 ML SYRINGE (TWO MG - NEW SYRINGE VERSION) IV PRN (18:00)
[2018-08-08] MEDS: Acetaminophen TAB* 325 MG PO SCH (18:07)
[2018-08-08] MEDS: ceFAZolin 1 GM ADVAN(*) 1 GM in NS 0.9% 50 ML* 50 ML IVPB SCH (19:16)
[2018-08-08] MEDS: Magnesium Hydroxide LIQ* 30 ML UDC PO SCH (19:26)
[2018-08-08] MEDS: Docusate CAP* 100 MG PO SCH (19:26)
--- NOTE | 2018-08-08 21:37 | OP ---
DATE OF OPERATION: 08/08/18 - ROOM #339 DATE OF : 63 ATTENDING SURGEON: Lizet Mistry MD. SECURITY SUPPORT ANALYST: LUCI Hackett. Phelps did help throughout the procedure with preparation of the leg, wound retraction, manipulation of the hip, and wound closure. ANESTHESIOLOGIST: Dr. Cruz. ANESTHESIA: General. PRE-OP DIAGNOSIS: Severe end-stage degenerative osteoarthritis of the right hip joint. POST-OP DIAGNOSIS: Severe end-stage degenerative osteoarthritis of the right hip joint. OPERATIVE PROCEDURE: Right total hip arthroplasty. COMPLICATIONS: None. ESTIMATED BLOOD LOSS: 250 cc. SPECIMENS: Femoral head and acetabular reaming sent to Pathology. HARDWARE USED: This is [place] uncemented total hip arthroplasty hardware with a cup of Trident 52E acetabulum with one 60-mm screw. For the liner, a trident X3 10- degree polyethylene insert 36E. For the stem, an Accolade 2 size 3 with a 132- degree neck. For the head, a Biolox delta ceramic V40 femoral head, 36 + 2.5. BRIEF HISTORY/INDICATIONS: Ms. Wiggins is a 52-year-old female with years of increasingly severe right hip pain. Radiographs showed [id number] arthritis. She failed conservative treatment with anti-inflammatories, pain medication, intraarticular injection and physical therapy. Due to continued pain and decreased quality of life, the patient elected to undergo right total hip arthroplasty. Informed consent was obtained from the patient. She understood the risks of surgery included but were not limited to bleeding, infection, damage to nearby structures, continued pain, need for further surgery, intraoperative fracture, nerve palsy, hardware failure or loosening, dislocation , leg length discrepancy, stroke, heart attack, blood clot, and . She wished to proceed. Specific to this, patient with her very young age and morbid obesity, which could lead to early loosening. We discussed this and the patient wished to proceed. INTRAOPERATIVE FINDINGS: Intraoperatively, the patient was noted to have severe end-stage arthritis. She had extensive osteophyte formation and complete loss of cartilage in the acetabulum and femoral head. DESCRIPTION OF PROCEDURE: Ms. Wiggins was identified in the preanesthesia unit. Her right lower extremity was marked as the correct operative side. Informed consent was signed and placed in the chart. The patient was taken to the operating room and placed under general anesthesia. A Patel catheter was placed. The patient was placed in the left lateral decubitus position on the pegboard. All bony prominences were well padded. Right lower extremity was prepped and draped in the usual sterile fashion. Preop time-out was made to correctly identify the patient's side and site. Appropriate perioperative antibiotics were given within 1 hour of incision. A standard posterior hip incision was made with a 10-blade and carried down to the lateral fascial layer. Lateral fascial layer was incised in line with the skin incision. A Charnley retractor was placed. The piriformis and conjoint tendons were elevated off the posterolateral femur and tagged with #5 Ethibond. Next, electrocautery was used to make a standard posterolateral capsular flap. This was also tagged with #5 Ethibond. The hip was carefully dislocated. Lesser troch to center of the femoral head measured 55 mm. Oscillating saw was used to make the appropriate femoral neck cut. The femoral head was removed. The femur was retracted anteriorly. After appropriate placement of retractor, the acetabulum was well visualized. A long-handled knife was used to sharply remove any remaining labrum from the acetabular rim. The acetabulum was sequentially reamed up to a size 51. A 51 reamer obtained a bleeding subchondral bone bed. A 51 trial had good stability. For the final implant a 52E Trident cup was chosen. This was impacted into the acetabulum without difficulty. The cup was stable with appropriate anteversion and abduction angle. A single screw was placed in the superior posterior quadrant for extra stability. Polyethylene chosen was a Trident X3 10-degree liner 36E. This was impacted into the acetabulum without difficulty. The liner was impacted and was stable. Stability of the liner was checked and rechecked and noted to be stable. Next, attention was turned to preparation of the femoral canal. A canal finder was used to enter the proximal femur. The femur was sequentially broached up to a size 3. Size 3 broach had good fit and appropriate anteversion. A 132 neck trial was chosen with a 36 +0 head trial. Lesser troch to center of the femoral head measured 53 mm. Therefore, a 36 +2.5 head was chosen. Lesser troch to center of femoral head measured 56 mm. The hip was reduced and taken through a range of motion. The hip was stable in all positions. There was good soft tissue tension and appropriate leg lengths. The hip was carefully dislocated. All trials were removed. Final implant chosen for the femur was an Accolade two femoral stem size 3 with a 132- degree neck angle. This was impacted into the femoral canal without difficulty. The stem was stable. There was appropriate anteversion. A Biolox delta ceramic V40, femoral head 36 +2.5 was chosen as the femoral head. This was impacted onto the femoral neck. Lesser troch to center of the femoral head measured 56 mm. The hip was reduced and taken through range of motion. The hip was stable in all positions. There was good soft tissue tension and appropriate leg length. The hip was copiously irrigated with sterile saline. Previously tagged tendons and capsule were reapproximated to the posterolateral femur through two trochanteric drill holes. The lateral fascial layer was closed using interrupted #1 Vicryls. The rest of the incision was closed in a layered fashion using 0 and 2-0 Vicryls. The skin was closed using running 3-0 Monocryl and Dermabond. Sterile Adaptic, 4x4s, and paper tape were used to cover the incision. The patient's anesthesia was reversed without difficulty. She was taken to the PACU in stable condition. Intended weightbearing will be weightbearing as tolerated. Intended DVT prophylaxis will be Eliquis t.i.d. [id number]/[facility] #: [id number] VIJAYA
[2018-08-08] MEDS: oxyCODONE/Acetamin 5/325 MG* TAB PO PRN (21:44)
[2018-08-09] MEDS: oxyCODONE TAB* 5 MG TAB PO PRN ×2 (00:39→05:41)
[2018-08-09] MEDS: Acetaminophen TAB* 325 MG PO SCH ×3 (02:19→15:38)
[2018-08-09] MEDS: oxyCODONE/Acetamin 5/325 MG* TAB PO PRN ×4 (03:07→17:17)
[2018-08-09] MEDS: ceFAZolin 1 GM ADVAN(*) 1 GM in NS 0.9% 50 ML* 50 ML IVPB SCH ×2 (03:08→11:24)
[2018-08-09] MEDS: Lactated Ringers 1000 ML Bag* 1,000 ML IV SCH (03:09)
[2018-08-09 05:35] LABS: Hematocrit 32 % (35-47); Hemoglobin 10.6 g/dl (12.0-16.0); Mean Platelet Volume 7.7 fL (7.4-10.4); Platelet Count 272 10^3/ul (150-450)
[2018-08-09 05:40] LABS: INR 1.02 (0.77-1.02)
[2018-08-09 05:51] LABS: BUN/Creatinine Ratio 18.6 (8-20); Calcium 8.4 mg/dL (8.6-10.3); EGFR Non-African American 106.6 (>60); Potassium 4.4 mmol/L (3.5-5.0)
[2018-08-09] MEDS ORDERED: Levothyroxine TAB* 175 MCG TAB PO SCH (06:00)
--- NOTE | 2018-08-09 08:21 | PN ---
Progress Note - Progress Note Date of Service: 08/09/18 SOAP: Subjective: 52 y/o female s/p R PRESTON by Dr Mistry 08/08/2018. Patient feeling well, pain well controlled, no complaints. Slightly "groggy: from medications. VSS, afebrile overnight. Objective: General- Well appearing, NAD, AO resting in chair comfortably. MSK- RLE- DF/PF = b/l, PT 1+ however weak b/l. negative homans sign., dressing intact, no drainage, erythema noted. Vital Signs Temp 97.7 F 08/09/18 03:09 Pulse 72 08/09/18 03:09 Resp 16 08/09/18 08:58 BP 109/59 08/09/18 03:09 Pulse Ox 96 08/09/18 03:09 Intake & Output 08/08/18 08/09/18 08/09/18 18:59 06:59 18:59 Intake Total 1999 2024 400 Output Total 1999 Balance 1999 25 400 Weight 116.845 kg Intake: IV Fluids 1999 1045 ABX - CEFAZOLIN 55 LR 1999 990 Oral 980 400 Output: Patel 1999 Assessment: Stable 52 y/o femle s/p R PRESTON by Dr Mistry 08/08/2018. Plan: - DVT prophylaxis- lovenox, eliquis at home - Continue PT/ OT - stairs tonight - Follow up with Dr. Mistry within 10-14 days - H&H - Stable - post-op IV ABX - Running - Pain medication- tramadol for mild pain, oxycodone/ percocet for moderate to severe pain - Pilar D/C tonight if does OK with PT> Acetaminophen (Tylenol Tab*) 975 mg PO Q8H [facility] Last Admin: 08/09/18 02:19 Dose: Not Given Apixaban (Eliquis*) 2.5 mg PO BID [facility] Bisacodyl (Dulcolax Supp*) 10 mg SC DAILY PRN PRN Reason: constipation Cyclobenzaprine HCl (Flexeril Tab*) 10 mg PO TID PRN PRN Reason: SPASMS Diphenhydramine HCl (Benadryl Iv*) 12.5 mg IV Q6H PRN PRN Reason: PRURITIS Docusate Sodium (Colace Cap*) 100 mg PO BID [facility] Last Admin: 08/09/18 08:58 Dose: 100 mg Enoxaparin Sodium (Lovenox(*)) 40 mg SUBCUT Q24H [facility] Lactated Ringer's (Lactated Ringers 1000 Ml Bag*) 1,000 mls @ 100 mls/hr IV PER RATE [facility] Last Admin: 08/09/18 03:09 Dose: 100 mls/hr Cefazolin Sodium 1 gm/ Sodium (Chloride) 50 mls @ 200 mls/hr IVPB 0300,1100, 1900 [facility] Stop: 08/09/18 11:14 Last Admin: 08/09/18 03:08 Dose: 200 mls/hr Lactulose (Lactulose*) 30 ml PO Q6H PRN PRN Reason: constipation Levothyroxine Sodium (Synthroid Tab*) 175 mcg PO QAM@0600 [facility] Last Admin: 08/09/18 05:41 Dose: 175 mcg Magnesium Hydroxide (Milk Of Magnesia Liq*) 30 ml PO BID [facility] Last Admin: 08/09/18 08:58 Dose: 30 ml Magnesium Hydroxide (Milk Of Magnesia Liq*) 30 ml PO Q6H PRN PRN Reason: constipation Morphine Sulfate (Morphine Inj ((Syringe))*) 2 mg IV Q2H PRN PRN Reason: PAIN Ondansetron HCl (Zofran Inj*) 4 mg IV Q6H PRN PRN Reason: nausea Ondansetron HCl (Zofran Tab*) 4 mg PO Q6H PRN PRN Reason: NAUSEA Oxycodone HCl (Roxycodone Tab*) 10 mg PO Q4H PRN PRN Reason: SEVERE PAIN Last Admin: 08/09/18 05:41 Dose: 10 mg Oxycodone/Acetaminophen (Percocet 5/325 Tab*) 1 tab PO Q4H PRN PRN Reason: PAIN Oxycodone/Acetaminophen (Percocet 5/325 Tab*) 2 tab PO Q4H PRN PRN Reason: PAIN Last Admin: 08/09/18 08:58 Dose: 2 tab Polyethylene Glycol/Electrolytes (Miralax*) 17 gm PO DAILY PRN PRN Reason: Constipation Tramadol HCl (Ultram*) 50 mg PO Q6H PRN PRN Reason: PAIN Laboratory Results - last 24 hr 08/09/18 08/09/18 08/09/18 05:26 05:26 05:26 Hgb 10.6 L Hct 32 L Plt Count 272 MPV 7.7 INR (Anticoag Therapy) 1.02 Sodium 134 L Potassium 4.4 Chloride 102 Carbon Dioxide 27 Anion Gap 5 BUN 11 Creatinine 0.59 Est GFR ( Amer) 129.0 Est GFR (Non-Af Amer) 106.6 BUN/Creatinine Ratio 18.6 Glucose 116 H Calcium 8.4 L
[2018-08-09] MEDS: Docusate CAP* 100 MG PO SCH (08:58)
[2018-08-09] MEDS: Magnesium Hydroxide LIQ* 30 ML UDC PO SCH (08:58)
[2018-08-09 11:33] VITALS: BP 109/57
[2018-08-09] MEDS ORDERED: Enoxaparin(*) 40 MG/0.4 ML SYR SUBCUT SCH (12:00)
[2018-08-09] MEDS ORDERED: Apixaban* 2.5 MG TAB PO SCH (21:00)
== END 2018-08-09 18:42 | disposition home or self-care (01) | DRG 301 ==
LOC: AA 07:11 → SSU 16:19
PROVIDERS: ADMIT Orthopaedic Surgery Adult Reconstructive Orthopaedic Surgery; ATTEND Orthopaedic Surgery Adult Reconstructive Orthopaedic Surgery
PROC: 0SR904A Replacement of Right Hip Joint with Ceramic on Polyethylene Synthetic Substitute, Uncemented, Open Approach (ICD-10-PCS; principal; 2018-08-08 10:00)
DX: M16.11 Unilateral primary osteoarthritis, right hip (principal); Z68.41 Body mass index [BMI] 40.0-44.9, adult; E03.9 Hypothyroidism, unspecified; E66.01 Morbid (severe) obesity due to excess calories; G47.33 Obstructive sleep apnea (adult) (pediatric); M25.751 Osteophyte, right hip; M54.31 Sciatica, right side; Z90.49 Acquired absence of other specified parts of digestive tract; Z85.3 Personal history of malignant neoplasm of breast; Z86.14 Personal history of Methicillin resistant Staphylococcus aureus infection; Z98.51 Tubal ligation status; Z82.49 Family history of ischemic heart disease and other diseases of the circulatory system; Z72.89 Other problems related to lifestyle; Z82.61 Family history of arthritis; Z82.0 Family history of epilepsy and other diseases of the nervous system; Z87.891 Personal history of nicotine dependence
CPT/HCPCS: 36415; 72170; 80048; 85014; 85018; 85049; 85610; A9270-GY; C1713; C1776; J0690; J1100; J1170; J1650; J1885; J2250; J2405; J2704; J2795; J3010

== ENCOUNTER 2021-09-27 07:30 | Inpatient (IN) ==
[~2021-09-27 07:30] MED LIST changes: -Acetaminophen TAB* 325 MG PO ONE; +Buffered Lidocaine 1% SYRIN 1 ml INTRADERM ONE; -Buffered Lidocaine 1% SYRIN* 1 ML/SYRINGE INTRADERM ONE; +DiMENhydriNATE IV 50 mg/ml 1 ml VIAL IV PUSH PRN; -Famotidine IV* 10 MG/ML 2 ML (20 mg) IV ONE; -Gabapentin CAP(*) 300 MG PO ONE; -Lactated Ringers 1000 ML Bag* 1,000 ML IV SCH; +Lactated Ringers 1000 ml BAG 1,000 ML IV SCH; +Naloxone 0.4 mg VIAL 0.4 mg/ml 1 ml VIAL IV PRN; -celeCOXIB CAP* 200 MG PO ONE; +fentaNYL 100 mcg/2 ml 50 MCG/ML VIAL IV PRN
[2021-09-27] MEDS ORDERED: ceFAZolin 2 GM in NS PREMIX 2 GM/100 ML BAG IVPB ONE (12:47)
[2021-09-27] MEDS ORDERED: Phenylephrine IV 10 MG/ML 1 ml VIAL ONE (12:49)
[2021-09-27] MEDS ORDERED: Midazolam 2 mg/2 ml VIAL 1 mg/ml 2 ml VIAL (2 mg) ONE ×2 (13:29→15:23)
[2021-09-27] MEDS ORDERED: Dexmedetomidine 200 mcg/2 ml 2 ml VIAL (200 mcg) ONE (14:15)
[2021-09-27] MEDS ORDERED: ROPIVACAINE 5 MG/ML 30 ML BTL (0.5%) ONE (14:15)
[2021-09-27] MEDS ORDERED: Lidocaine 2% PF 5 ML VIAL ONE ×2 (14:15→14:54)
[2021-09-27] MEDS ORDERED: ceFAZolin VIAL 1 GM in NS 0.9% 50 ML 50 ML IVPB ONE (15:15)
[2021-09-27] MEDS ORDERED: Ropivacaine 5 MG/ML 20 ML VIAL 0.5% (100 MG) ONE (15:32)
[2021-09-27] MEDS ORDERED: Propofol 10 MG/ML 20 ML BTL ONE ×2 (15:52→16:54)
[2021-09-27] MEDS ORDERED: diPHENhydraMINE 25 mg TAB PO PRN (16:09)
[2021-09-27] MEDS ORDERED: Morphine 2 MG/ML SYRINGE IV PRN (16:09)
[2021-09-27] MEDS ORDERED: Magnesium Hydroxide LIQ 30 ML UDC PO PRN (16:09)
[2021-09-27] MEDS ORDERED: diPHENhydraMINE IV 50 MG/ML 1 ml VIAL (BENADRYL) IV PRN (16:09)
[2021-09-27] MEDS ORDERED: Lactulose 30 ml UDC PO PRN (16:09)
[2021-09-27] MEDS ORDERED: Ondansetron 4 mg VIAL 2 MG/ML 2 ml VIAL IV PRN (16:09)
[2021-09-27] MEDS ORDERED: Ondansetron ODT 4 mg TAB 4 MG TAB PO PRN (16:09)
[2021-09-27] MEDS ORDERED: Dexamethasone IV 4 MG/ML VIAL 1 ml VIAL ONE (16:58)
[2021-09-27] MEDS ORDERED: Ondansetron 4 mg VIAL 2 MG/ML 2 ml VIAL ONE (16:58)
[2021-09-27] MEDS: Lactated Ringers 1000 ml BAG 1,000 ML IV SCH (19:17)
[2021-09-27] MEDS: Magnesium Hydroxide LIQ 30 ML UDC PO SCH (20:29)
[2021-09-28] MEDS: ceFAZolin VIAL 1 GM in NS 0.9% 50 ML 50 ML IVPB SCH ×3 (00:17→15:46)
[2021-09-28] MEDS: Lactated Ringers 1000 ml BAG 1,000 ML IV SCH (06:22)
[2021-09-28 06:42] LABS: Hematocrit 37 % (35-47); Hemoglobin 12.5 g/dL (12.0-16.0); Mean Platelet Volume 7.7 fL (7.4-10.4); Platelet Count 287 10^3/uL (150-450)
[2021-09-28 07:12] LABS: Calcium 8.3 mg/dL (8.6-10.3); Potassium 4.5 mmol/L (3.5-5.0); eGFR CKD-EPI 102.2 (>60)
[2021-09-28] MEDS: Magnesium Hydroxide LIQ 30 ML UDC PO SCH (08:34)
[2021-09-28] MEDS ORDERED: Vitamin THERAPEUTIC TAB PO SCH (09:00)
[2021-09-28 16:48] VITALS: BP 129/58
== END 2021-09-28 17:09 | disposition home or self-care (01) | DRG 302 ==
LOC: INTOOBSV 12:22 → AA 12:22 → SSU 19:24
PROVIDERS: ADMIT Orthopaedic Surgery Adult Reconstructive Orthopaedic Surgery; ATTEND Orthopaedic Surgery Adult Reconstructive Orthopaedic Surgery